=== PATIENT | female | born 1965 | race Caucasian/White ===

== ENCOUNTER 2018-03-06 07:05 | Day surgery (SDC) | payer BC ==
[~2018-03-06] VITALS: Ht 167.6 cm; Wt 142.8 kg
[~2018-03-06 07:05] MED LIST: COZAAR100 MG PO; KLONOPIN1 MG PO; ZOLOFT25 MG PO
[2018-03-06 07:47] VITALS: BP 164/82
[2018-03-06 08:26] LABS: CHLORIDE 104 MEQ/L (99-109); CREATININE 0.8 MG/DL (0.6-1.3); GFR ESTIMATE (CALCULATED) > 59 mL/min/; GLUCOSE 96 mg/dL (70-99); POTASSIUM 3.7 MEQ/L (3.7-5.4); SODIUM 139 MEQ/L (136-147); UREA NITROGEN (BUN) 13 mg/dL (9-23)
[2018-03-06 08:30] LABS: QUANTITATIVE HCG 4.3 MIU/ML
[2018-03-06 08:48] LABS: BASOPHIL COUNT 0.1 K/uL (0-0.1); EOSINOPHIL (%) 3.3 % (0-5); EOSINOPHIL COUNT 0.2 K/uL (0-0.3); HEMATOCRIT 37.8 % (36.0-46.0); HEMOGLOBIN 12.7 G/DL (11.9-15.5); IMMATURE GRANULOCYTE (%) 0.4 % (0.0-0.7); LYMPHOCYTE (%) 38.2 % (15-42); MCH 31.9 PG (29.0-34.0); MCHC 33.6 G/DL (30.0-36.0); MONOCYTE (%) 6.9 % (3-12); MONOCYTE COUNT 0.4 K/uL (0-0.8); NEUTROPHIL (%) 50.2 % (45-76); NEUTROPHIL COUNT 2.6 K/uL (1.8-6.4); PLATELET COUNT 194 K/uL (156-360); RBC DIS.WIDTH-CV 12.2 % (11.8-14.6); RBC DIS.WIDTH-SD 42.3 % (39-53); RED BLOOD COUNT 3.98 M/uL (3.80-5.20); WHITE BLOOD COUNT 5.2 K/uL (4.1-10.2)
[2018-03-06] MEDS ORDERED: MOTRIN800 MG PO (10:17)
[2018-03-06 12:00] VITALS: BP 184/81
== END 2018-03-06 12:10 | disposition home or self-care (01) ==
LOC: SDC 07:05
PROVIDERS: Obstetrics & Gynecology
PROC: 0UBC7ZX Excision of Cervix, Via Natural or Artificial Opening, Diagnostic (ICD-10-PCS; principal; 2018-03-06)
DX: D06.1 Carcinoma in situ of exocervix (principal); I10 Essential (primary) hypertension; Z87.891 Personal history of nicotine dependence
CPT/HCPCS: 80048; 84702; 85025; 88307; J0330; J2250; J3010; Q0175